=== PATIENT | male | born 1980 | race Caucasian/White ===

== ENCOUNTER 2019-05-18 10:32 | Emergency (ER) | payer MEDICAID, SELFPAY ==
[2019-05-18 10:36] VITALS: BP 129/89; PULSE 98; RESP 16; TEMP 36.8; O2SAT 96
--- NOTE | 2019-05-18 11:01 | W.ED.GENAD ---
Discharge Plan Disposition Patient Disposition: HOME Condition: Stable Discharge Details Chief Complaint: RespSymp Clinical Impression: Acute bronchitis Primary Care Provider: LORRIE PORTILLO ED Provider: Louann Harrington Home Meds and New Rx's Prescriptions: New prednisone 20 mg tablet See Rx Instructions .ROUTE .COMPLEX Qty: 12 RF: 0 Continued allopurinol 100 mg Tablet 100 mg PO DAILY RF: 0 Discharge Instructions Instructions: Acute Bronchitis (ED) Additional Instructions: Drink plenty of fluids and get plenty of rest. Use the albuterol inhaler as needed and directed for shortness of breath. If your symptoms of coughing and wheezing do not improve over the next 2 days, you can start the steroids. Follow-up with your primary care doctor within the next week for reevaluation and if symptoms do not improve, you may need antibiotics. Return to the emergency department if you develop any significant worsening or new concerning symptoms. Stand Alone Forms: Work Release Discharge Data Discharge Date/Time-TO BE ENTERED AT DEPARTURE: 05/18/19 11:25 Discharge Physician: Louann Harrington Medical Decision Making 39-year-old male with history of anxiety depression presents with runny nose, cough with white sputum, intermittent shortness of breath and wheezing for the past week. Requested a work note on arrival. Vitals within normal limits. Afebrile. Normal ENT and lung exam. Patient is speaking in full sentences. No wheezing. Discussed with patient that symptoms could be viral consistent with URI or possibly bronchitis. Patient states he had bronchitis a year ago and his symptoms seem similar to that. We will send home with an albuterol inhaler to use as needed. We will also send with a prescription for prednisone if symptoms do not improve or worsen over the next 2 days. Discussed that I do not think antibiotics are indicated he has no fever, decreased appetite with normal oxygen saturation and normal lung exam and patient is agreeable with this plan. He requested a work note to return Friday. He is advised to follow-up with his primary care doctor within the next week for reevaluation and to return here if worse. Medical Records Medical records reviewed: Yes I reviewed the patient's medical records. HPI General Mode of arrival: ambulatory. Date/Time Provider Initiated Documentation: 05/18/19 10:41. Limitations to Documentation: no limitations. Information obtained by: patient. HPI Narrative: Patient is a 39-year-old male with history of anxiety and depression who presents with runny nose, cough with white sputum, occasional shortness of breath, and wheezing for the past week. Denies any fever or change in appetite. He currently denies any chest pain or shortness of breath. He denies ear pain, sore throat. He states he is here today for a work note as he called out of work today for his symptoms. Related Data Home Medications Medication Instructions Recorded Confirmed allopurinol 100 mg PO DAILY 05/18/19 05/18/19 prednisone See Rx Instructions .ROUTE 05/18/19 .COMPLEX #12 tab Previous Rx's Medication Instructions Recorded prednisone See Rx Instructions .ROUTE 05/18/19 .COMPLEX #12 tab Allergies Allergy/AdvReac Type Severity Reaction Status Date / Time bee venom protein (honey bee) Allergy Unknown Swelling/Ed Unverified 05/18/19 10:41 hema General Stated Complaint: RespSymp MICHELLE: 4 Review of Systems All systems reviewed & are unremarkable except as noted in HPI and below Constitutional Constitutional: Reports as per HPI, Denies chills and Denies fever(s) Eyes Eyes: Denies blurry vision ENT Ears, Nose, Mouth, and Throat: Denies dizziness, Denies sore throat and Denies throat swelling Cardiovascular Cardiovascular: Denies chest pain and Denies dyspnea Respiratory Respiratory: Denies cough and Denies dyspnea Gastrointestinal Gastrointestinal: Denies abdominal pain, Denies diarrhea and Denies vomiting Genitourinary Genitourinary: Denies hematuria and Denies dysuria Musculoskeletal Musculoskeletal: Denies back pain and Denies numbness Integumentary/Breasts Skin/Breast: Denies lesions and Denies rash Neurologic Neurologic: Denies dizziness, Denies focal weakness and Denies numbness Allergic/Immunologic Allergic/Immunologic: Denies throat swelling [facility] Medical History Anxiety (Chronic) Depression (Chronic) Surgical History No significant past surgical history (Acute) Social History Smoking/Tobacco Use Status: Never Alcohol Intake: former Substance use type: does not use Do you feel safe at home: Yes Do you feel safe in your relationship?: Yes Exam Const General: cooperative, healthy appearing and no acute distress HENOR Head: normal to inspection Ears: hearing grossly normal bilaterally, external ears normal and TM's normal bilaterally General nose exam: external nose normal Face and sinus: normal facial exam Mouth: oral mucosae normal Throat: posterior oropharynx normal Eyes General: appearance normal, both eyes and all related structures Pupils: PERRL EOM: EOM intact bilaterally Neck Neck: normal visual inspection and No submandibular swelling Lymphatic: no lymphadenopathy noted Chest Chest: normal inspection of the chest and no tenderness Resp Effort & Inspection: normal respiratory effort and able to speak in complete sentences Auscultation: clear to auscultation bilaterally Cardio Rate: regular rate Rhythm: regular rhythm Skin General skin exam: no rashes or lesions noted Neuro General: alert, awake and oriented x3 Cognition: normal cognition Speech: speech normal Motor: muscle tone normal throughout Sensory Exam: no sensory deficits noted Extrem General: normal to inspection, full ROM, normal capillary refill, no calf tenderness bilaterally and no edema Psych Appearance: grossly normal Mental Status: mental status grossly normal Speech and Movement: speech and movement normal Affect: normal affect Course Vital Signs Vital signs: Vital Signs Temperature 98.2 F 05/18/19 10:36 Pulse 98 H 05/18/19 10:36 Respiratory Rate 16 05/18/19 10:36 Blood Pressure 129/89 05/18/19 10:36 Pulse Oximetry 96 05/18/19 10:36 Temperature 98.2 F 05/18/19 10:36 Temperature Source Temporal Artery Scan 05/18/19 10:36 Pulse 98 H 05/18/19 10:36 Respiratory Rate 16 05/18/19 10:36 Respiratory Effort Non-Labored 05/18/19 10:51 Respiratory Depth Normal 05/18/19 10:51 Blood Pressure 129/89 05/18/19 10:36 Blood Pressure Position Sitting 05/18/19 10:36 Pulse Oximetry 96 05/18/19 10:36 Oxygen Delivery Method Room Air 05/18/19 10:36 Oxygen Flow Rate 0 05/18/19 10:36 Pain Level 3 05/18/19 10:36
[2019-05-18] MEDS: Albuterol HFA 8 GM 60 PUFF INH IH (11:19)
== END 2019-05-18 11:25 | disposition home or self-care (01) ==
PROVIDERS: Emergency Provider Physician Assistant; PCP Nurse Practitioner Family
DX: J20.9 Acute bronchitis, unspecified (principal)
CPT/HCPCS: 99283

== ENCOUNTER 2020-02-11 18:10 | Outpatient (REF) | payer MEDICAID, SELFPAY ==
[2020-02-15 23:50] LABS: SARS-CoV-2 RNA Undetected (Undetected)
== END 2020-02-11 18:30 ==
LOC: NCHCN 18:10
PROVIDERS: PCP Nurse Practitioner Family; Visit Provider Nurse Practitioner Family
DX: Z11.59 Encounter for screening for other viral diseases (principal)
CPT/HCPCS: U0003

== ENCOUNTER 2020-09-04 13:38 | Outpatient (REF) | payer MEDICAID, SELFPAY ==
[2020-09-05 16:20] LABS: Helicobacter pylori Ag, Feces Negative (Negative)
== END 2020-09-04 13:39 | disposition home or self-care (01) ==
LOC: NCHCN 13:38
PROVIDERS: PCP Nurse Practitioner Family; Visit Provider Nurse Practitioner Community Health
DX: R10.9 Unspecified abdominal pain (principal); K59.09 Other constipation; R14.0 Abdominal distension (gaseous)
CPT/HCPCS: 87338

== ENCOUNTER 2020-10-16 16:34 | Outpatient (REF) | payer MEDICAID, SELFPAY ==
[2020-10-16 21:48] LABS: Anion Gap 10.5 mmol/L (3-11); BUN 13 mg/dL (7-18); CO2 26.5 mmol/L (21.0-32.0); Calcium 8.7 mg/dL (8.5-10.1); Calculated LDL 45 mg/dL (<100); Chloride 106 mmol/L (98-107); Cholesterol 114 mg/dL (<200); Glucose 133 mg/dL (74-106); HDL Cholesterol 31 mg/dL (40-60); Potassium 3.9 mmol/L (3.5-5.1); Sodium 143 mmol/L (136-145); Triglyceride 192 mg/dL (<150)
[2020-10-16 21:50] LABS: Hemoglobin A1C 7.3 % (<5.7)
== END 2020-10-16 16:35 | disposition home or self-care (01) ==
LOC: NCHCN 16:34
PROVIDERS: PCP Nurse Practitioner Family; Visit Provider Nurse Practitioner Family
DX: E78.6 Lipoprotein deficiency (principal); M54.5 Low back pain; Z13.1 Encounter for screening for diabetes mellitus; M10.9 Gout, unspecified
CPT/HCPCS: 80048; 80061; 83036; 84550

== ENCOUNTER 2020-10-19 16:38 | Outpatient (REF) | payer MEDICAID, SELFPAY ==
[2020-10-19 14:13] LABS: Glucose 150 mg/dL (74-106)
== END 2020-10-19 16:39 | disposition home or self-care (01) ==
LOC: NCHCN 16:38
PROVIDERS: PCP Nurse Practitioner Family; Visit Provider Nurse Practitioner Family
DX: Z13.1 Encounter for screening for diabetes mellitus (principal)
CPT/HCPCS: 82947

== ENCOUNTER 2021-01-22 16:13 | Outpatient (REF) | payer MEDICAID, SELFPAY | END 2021-01-22 16:14 | disposition home or self-care (01) | LOC: NCHCN 16:13 | PROVIDERS: PCP Nurse Practitioner Family; Visit Provider Nurse Practitioner Family | DX: E11.9 Type 2 diabetes mellitus without complications (principal) | CPT/HCPCS: 82043; 82570 ==

== ENCOUNTER 2021-07-20 12:00 | Outpatient (REF) | payer MEDICAID, SELFPAY ==
[2021-07-20 14:52] LABS: HCT 44.6 % (40.0-50.0); HGB 14.4 g/dL (13.5-17.5); MCH 28.7 pg (27.0-33.0); MCHC 32.3 % (32.0-36.0); MCV 88.8 fL (80-95); MPV 9.8 fL (8.0-11.0); Platelet Count 226 10^3/uL (130-400); RBC 5.02 10^6/uL (4.36-5.78); RDW 12.7 % (11.8-14.1); RDW-SD 41.6 fL; WBC 6.75 10^3/uL (4.4-10.8)
[2021-07-20 15:15] LABS: Anion Gap 9.7 mmol/L (3-11); BUN 8 mg/dL (7-18); CO2 28.3 mmol/L (21.0-32.0); CREATININE 0.9 mg/dL (0.70-1.30); Calcium 8.9 mg/dL (8.5-10.1); Chloride 104 mmol/L (98-107); Glucose 129 mg/dL (74-106); Magnesium 1.7 mg/dL (1.8-2.4); Sodium 142 mmol/L (136-145)
[2021-07-20 16:03] LABS: Calculated LDL 63 mg/dL (<100); Cholesterol 119 mg/dL (<200); Ferritin 140 ng/mL (26-388); HDL Cholesterol 38 mg/dL (40-60); Triglyceride 93 mg/dL (<150); Vitamin B12 397 pg/mL (193-986)
[2021-07-20 16:39] LABS: Hemoglobin A1C 6.2 % (<5.7)
== END 2021-07-20 12:01 | disposition home or self-care (01) ==
LOC: NCHCN 12:00
PROVIDERS: PCP Nurse Practitioner Family; Visit Provider Nurse Practitioner Family
DX: E11.9 Type 2 diabetes mellitus without complications (principal); E78.6 Lipoprotein deficiency; K21.9 Gastro-esophageal reflux disease without esophagitis; M10.9 Gout, unspecified; G47.33 Obstructive sleep apnea (adult) (pediatric)
CPT/HCPCS: 80048; 80061; 85027; 82607; 82728; 83036; 83735; 84550

== ENCOUNTER 2022-01-15 15:45 | Outpatient (REF) | payer MEDICAID, SELFPAY ==
[2022-01-15 15:51] LABS: COMMENT (LAB VIEW ONLY) 221.27 mg/dL; Microalb ug/mg Crea 5.1 ug/mg Cr
== END 2022-01-15 15:46 | disposition home or self-care (01) ==
LOC: NCHCN 15:45
PROVIDERS: PCP Nurse Practitioner Family; Visit Provider Nurse Practitioner Family
DX: E11.9 Type 2 diabetes mellitus without complications (principal)
CPT/HCPCS: 82043; 82570

== ENCOUNTER 2022-09-02 11:52 | Outpatient (REF) | payer MEDICAID, SELFPAY ==
[2022-09-02 16:14] LABS: COMMENT (LAB VIEW ONLY) 154.78 mg/dL; Microalb ug/mg Crea 6.6 ug/mg Cr
[2022-09-02 16:28] LABS: ALT 60 U/L (16-63); AST 27 U/L (15-37); Albumin 4.2 g/dL (3.4-5.0); Alkaline Phosphatase 103 U/L (46-116); Anion Gap 7.6 mmol/L (3-11); BUN 14 mg/dL (7-18); Bilirubin, Total 0.5 mg/dL (0.2-1.0); CO2 29.4 mmol/L (21.0-32.0); CREATININE 0.9 mg/dL (0.70-1.30); Calcium 9.4 mg/dL (8.5-10.1); Chloride 103 mmol/L (98-107); Estimated GFR 109.36 (mL/min/1.73m2); Glucose 134 mg/dL (74-106); Potassium 4.4 mmol/L (3.5-5.1); Sodium 140 mmol/L (136-145); Total Protein 8.5 g/dL (6.4-8.2)
== END 2022-09-02 11:53 | disposition home or self-care (01) ==
LOC: LBN 11:52
PROVIDERS: PCP Nurse Practitioner Family; Visit Provider Nurse Practitioner Family
DX: E11.9 Type 2 diabetes mellitus without complications (principal); M10.9 Gout, unspecified
CPT/HCPCS: 80053; 86803; 87389; 82043; 82570; 84550

== ENCOUNTER 2023-08-09 09:39 | Emergency (ER) | payer MEDICAID, SELFPAY ==
[2023-08-09 09:41] VITALS: BP 128/87; PULSE 105; RESP 18; TEMP 38.3; O2SAT 97
--- NOTE | 2023-08-09 09:51 | ED.GENADUL_ITS ---
HPI General Mode of arrival: ambulatory . Date/Time Provider Initiated Documentation: 08/09/23 09:39 . Limitations to Documentation: no limitations . Information obtained by: patient . History of Present Illness 43 year old M presents to the emergency department with the chief complaint of Cough, described as moderate, Patient started experiencing this day(s) (3) and it has been intermittent. No relieving factors improve symptom(s), No exacerbating factors reported . Patient notes fever/chills; denies chest pain, nausea/vomiting, rash and shortness of breath. Patient did receive the following treatments prior to arrival, none Related Data Home Medications Medication Instructions Recorded Confirmed allopurinol 100 mg tablet 100 mg PO DAILY 05/18/19 08/09/23 famotidine 20 mg tablet 20 mg PO DAILY 08/09/23 08/09/23 metformin 1,000 mg tablet 1,000 mg PO DAILY 08/09/23 08/09/23 oseltamivir 75 mg capsule 75 mg PO Q12H 5 days #10 caps 08/09/23 prednisone 20 mg tablet 60 mg (3 x 20 mg) PO DAILY 4 days 08/09/23 #12 tabs semaglutide 0.25 mg or 0.5 mg (2 0.25 mg subcut ONCE 08/09/23 08/09/23 mg/3 mL) subcutaneous pen injector (Ozempic) Previous Rx's Medication Instructions Recorded oseltamivir 75 mg capsule 75 mg PO Q12H 5 days #10 caps 08/09/23 prednisone 20 mg tablet 60 mg (3 x 20 mg) PO DAILY 4 days 08/09/23 #12 tabs Allergies Allergy/AdvReac Type Severity Reaction Status Date / Time bee venom protein (honey bee) Allergy Unknown Swelling/Ed Unverified 08/09/23 09:53 hema General Stated Complaint: RespSymp MICHELLE: 3 Review of Systems All systems reviewed & are unremarkable except as noted in HPI and below Constitutional Constitutional: Reports chills, Reports fever(s) and Denies weakness Cardiovascular Cardiovascular: Denies chest pain and Denies dyspnea Respiratory Respiratory: Reports cough and Denies dyspnea Gastrointestinal Gastrointestinal: Denies abdominal pain, Denies nausea and Denies vomiting Musculoskeletal Musculoskeletal: Denies joint swelling Integumentary/Breasts Skin/Breast: Denies rash Neurologic Neurologic: Denies weakness Exam Const General: no acute distress Orientation: alert HENMT Head: normal to inspection Ears: external ears normal General nose exam: external nose normal Mouth: moist mucous membranes Eyes General: appearance normal, both eyes and all related structures Neck Neck: normal visual inspection Resp Effort & Inspection: normal respiratory effort and able to speak in complete sentences Auscultation: rhonchi Cardio Rate: regular rate Heart Sounds: no murmurs Skin General skin exam: no rashes or lesions noted Neuro General: patient alert and patient oriented x3 Extrem General: normal to inspection Psych Mental Status: mental status grossly normal Course Vital Signs Vital signs: Vital Signs Temperature 38.3 C H 08/09/23 09:41 Pulse 105 H 08/09/23 09:41 Respiratory Rate 18 08/09/23 09:41 Blood Pressure 128/87 08/09/23 09:41 Pulse Oximetry 97 08/09/23 09:41 Temperature 38.3 C H 08/09/23 09:41 Temperature Source Temporal Artery Scan 08/09/23 09:41 Pulse 105 H 08/09/23 09:41 Respiratory Rate 18 08/09/23 09:41 Blood Pressure 128/87 08/09/23 09:41 Blood Pressure Position Sitting 08/09/23 09:41 Pulse Oximetry 97 08/09/23 09:41 Oxygen Delivery Method Room Air 08/09/23 09:41 Oxygen Flow Rate 0 08/09/23 09:41 Pain Level 7 08/09/23 09:41 Medical Decision Making 43-year-old male with a history of gout, diabetes, comes in with complaints of fevers and dry cough since . He denies any chest pain, shortness of breath, abdominal pain, rashes. He denies any history of smoking, does not abuse alcohol, does not use any drugs per patient. He arrives ambulatory with no signs of respiratory distress, speaking in full sentences oriented x 4. He does have rhonchi at the bases of both lungs on auscultation, no murmurs, no JVD, no leg swelling or calf tenderness. Suspect URI versus bronchitis, will treat with nebulizer and prednisone, and obtain x-ray of Fluvid. He is febrile but he appears well, stable blood pressure so doubt sepsis Patient stable, feels better, lung sounds improved. He is positive for flu A, x-ray negative. Will initiate Tamiflu, advised to follow-up with his primary care if not better this week and return precautions given Differential Diagnosis Differential Diagnosis: URI, bronchitis, COVID, pneumonia Medical Records Medical records reviewed: Yes I reviewed the patient's medical records. Imaging Data Radiologic Study: Attestation: I personally reviewed and interpreted this imaging study as follows: Imaging: X-Ray Radiologist's impression: IMPRESSION: No acute findings. Lab Data Lab results reviewed: Yes I reviewed the patient's lab results. Quality:SDOH Health Related Social Needs: No Data to Display PFSH All Active Problems (Updated 08/09/23 @ 10:40 by Adams Hernandez MD) Influenza (Acute) Upper respiratory infection (Acute) Medical History (Updated 08/09/23 @ 10:40 by Adams Hernandez MD) Depression Anxiety Surgical History No significant past surgical history Social History Smoking/Tobacco Use Status: Never Smoking risk assessment performed?: Yes Alcohol Intake: former Substance use type: does not use Do you feel safe at home: Yes Do you feel safe in your relationship?: Yes Discharge Plan Disposition Patient Disposition: Home Condition: Stable Discharge Details Clinical Impression: Upper respiratory infection, Influenza Primary Care Provider: Nicole Cleaning ED Provider: Adams Hernandez Home Meds and New Rx's Prescriptions: New prednisone 20 mg tablet 60 mg PO DAILY 4 Days Qty: 12 0RF oseltamivir 75 mg capsule 75 mg PO Q12H 5 Days Qty: 10 0RF Continued famotidine 20 mg tablet 20 mg PO DAILY metformin 1,000 mg tablet 1,000 mg PO DAILY Ozempic 0.25 mg or 0.5 mg (2 mg/3 mL) pen injector 0.25 mg SUBCUT ONCE allopurinol 100 mg Tablet 100 mg PO DAILY Discontinued prednisone 20 mg tablet See Rx Instructions .ROUTE .COMPLEX Qty: 12 0RF Rx Instructions: Take 3 tabs daily for 2 days, then 2 tabs daily for 2 days, then 1 tab daily for 2 days Discharge Instructions Instructions: Influenza (ED), Upper Respiratory Infection (ED) Additional Instructions: Your x-ray did not show any concerning findings at this time. You are positive for the flu If not improving this week follow-up with your primary care provider or express care If you feel more ill, have worsening shortness of breath, or new symptoms such as persistent vomiting return to the emergency department for reevaluation
[2023-08-09 10:05] VITALS: RESP 5
[2023-08-09] MEDS: Albuterol/Ipratropium 3 ML UPD VIAL UPD (10:05)
[2023-08-09] MEDS: Acetaminophen 500 MG TAB 1000 MG PO (10:05)
[2023-08-09 10:06] VITALS: BP 128/87; PULSE 105; RESP 18; TEMP 38.3; O2SAT 97
[2023-08-09] MEDS: predniSONE 20 MG TAB 60 MG PO (10:06)
--- NOTE | 2023-08-09 10:24 | DI.RAD_ITS ---
Exam(s) XR CHEST 2V PA LATERAL EXAM: XR CHEST 2V PA LATERAL CLINICAL HISTORY: cough TECHNIQUE: 2D digital imaging was performed of the chest. Two images were obtained. PA and lateral views were obtained. COMPARISON: CR CHEST 2 VIEWS PA,LAT from 09/02/2017 FINDINGS: MEDIASTINUM: Normal. HEART: Normal. PULMONARY VASCULATURE: Normal. LUNGS: Clear. PLEURAL SPACE: No pleural effusion or pneumothorax. BONE:Within normal limits for the patient's age. OTHER FINDINGS:Normal. IMPRESSION: No acute pulmonary findings. DATA REPOSITORY: RADIATION DOSE DELIVERED:
--- NOTE | 2023-08-09 10:31 | DI.VRAD_ITS ---
PROCEDURE INFORMATION: Exam: XR Chest Exam date and time: 08/09/2023 10:18 AM Age: 43 years old Clinical indication: Other: Cough TECHNIQUE: Imaging protocol: Radiologic exam of the chest. Views: 2 views. COMPARISON: CR CHEST 2 VIEWS PA,LAT 09/02/2017 9:34 AM FINDINGS: Lungs: Unremarkable. No consolidation. Pleural spaces: Unremarkable. No pleural effusion. No pneumothorax. Heart/Mediastinum: Unremarkable. No cardiomegaly. Bones/joints: Unremarkable. IMPRESSION: No acute findings. Dictated and Authenticated by: Bruce Weber MD. Ordering:YONY Lamas MD
[2023-08-09 10:33] LABS: COVID-19 PCR Negative (Negative); Influenza A PCR Positive (Negative); Influenza B PCR Negative (Negative); RSV PCR Negative (Negative)
[2023-08-09 10:35] LABS: Source Nasopharynx
[2023-08-09 10:49] VITALS: BP 133/79; PULSE 114; RESP 14; O2SAT 95
== END 2023-08-09 11:11 | disposition home or self-care (01) ==
LOC: ER 10:54
PROVIDERS: Emergency Provider Emergency Medicine; PCP Nurse Practitioner Family
DX: J11.1 Influenza due to unidentified influenza virus with other respiratory manifestations (principal); J06.9 Acute upper respiratory infection, unspecified; R05.1 Acute cough; R50.9 Fever, unspecified
CPT/HCPCS: 87637; 94640; 99283; 71046; J7512; J7620

== ENCOUNTER 2023-11-28 13:22 | Outpatient (REF) | payer BC, SELFPAY ==
[2023-11-28 14:41] LABS: HCT 49.7 % (40.0-50.0); HGB 16.5 g/dL (13.5-17.5); MCHC 33.2 % (32.0-36.0); MCV 87 fL (80-95); MPV 10.1 fL (8.0-11.0); Platelet Count 250 10^3/uL (130-400); RBC 5.69 10^6/uL (4.36-5.78); RDW 12.6 % (11.8-14.1); RDW-SD 40.7 fL; WBC 5.76 10^3/uL (4.4-10.8)
[2023-11-28 15:01] LABS: ALT 47 U/L (16-63); AST 24 U/L (15-37); Albumin 4.2 g/dL (3.4-5.0); Alkaline Phosphatase 107 U/L (46-116); Anion Gap 7.9 mmol/L (3-11); BUN 11 mg/dL (7-18); Bilirubin, Total 0.6 mg/dL (0.2-1.0); CO2 30.1 mmol/L (21.0-32.0); Calcium 9.2 mg/dL (8.5-10.1); Calculated LDL 56 mg/dL (<100); Chloride 105 mmol/L (98-107); Cholesterol 111 mg/dL (<200); Estimated GFR 95.77 (mL/min/1.73m2); Glucose 141 mg/dL (74-106); HDL Cholesterol 40 mg/dL (40-60); Potassium 3.8 mmol/L (3.5-5.1); Sodium 143 mmol/L (136-145); TSH 2.73 uIU/Ml (0.36-3.74); Total Protein 8.2 g/dL (6.4-8.2); Triglyceride 79 mg/dL (<150)
[2023-11-28 15:07] LABS: Hemoglobin A1C 5.8 % (<5.7)
[2023-11-28 15:10] LABS: Uric Acid 6.9 mg/dL (3.5-7.2)
== END 2023-11-28 13:23 | disposition home or self-care (01) ==
LOC: NCHCN 13:22
PROVIDERS: PCP Nurse Practitioner Family; Visit Provider Nurse Practitioner Family
DX: Z00.00 Encounter for general adult medical examination without abnormal findings (principal); E11.9 Type 2 diabetes mellitus without complications
CPT/HCPCS: 80053; 80061; 85027; 83036; 84443; 84550

== ENCOUNTER 2023-12-05 14:41 | Outpatient (REF) | payer BC, SELFPAY ==
[2023-12-05 16:41] LABS: COMMENT (LAB VIEW ONLY) 120.72 mg/dL; Microalb ug/mg Crea 5.3 ug/mg Cr
== END 2023-12-05 14:42 | disposition home or self-care (01) ==
LOC: NCHCN 14:41
PROVIDERS: PCP Nurse Practitioner Family; Visit Provider Registered Nurse
DX: E11.9 Type 2 diabetes mellitus without complications (principal)
CPT/HCPCS: 82043; 82570

== ENCOUNTER 2024-12-02 09:26 | Outpatient (REF) | payer BC, SELFPAY ==
[2024-12-02 15:40] LABS: BUN 15 mg/dL (7-18); CREATININE 1.1 mg/dL (0.70-1.30); Calcium 9.1 mg/dL (8.5-10.1); Chloride 102 mmol/L (98-107); Estimated GFR 84.89 (mL/min/1.73m2); Glucose 355 mg/dL (74-106); Potassium 4.2 mmol/L (3.5-5.1); Sodium 137 mmol/L (136-145); Uric Acid 6.3 mg/dL (3.5-7.2)
[2024-12-02 15:42] LABS: Hemoglobin A1C 7.3 % (<5.7)
[2024-12-02 16:32] LABS: COMMENT (LAB VIEW ONLY) 91.32 mg/dL; Microalb ug/mg Crea 5.4 ug/mg Cr
== END 2024-12-02 09:27 | disposition home or self-care (01) ==
LOC: NCHCN 09:26
PROVIDERS: PCP Nurse Practitioner Family; Visit Provider Nurse Practitioner Family
DX: E11.9 Type 2 diabetes mellitus without complications (principal); M10.9 Gout, unspecified
CPT/HCPCS: 80048; 82043; 82570; 83036; 84550